=== PATIENT | male | born 1945 | race Two or more races ===

== ENCOUNTER 2021-07-02 12:10 | Emergency (ER) | payer MEDICARE, OTHER ==
[~2021-07-02] VITALS: Ht 170.2 cm; Wt 77.1 kg
--- NOTE | 2021-07-02 12:15 | NUR ---
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 ALSO C/O CHEST DISCOMFORT. PLACED ON BED. AMBULATORY, AAOX4.
--- NOTE | 2021-07-02 12:18 | NUR ---
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 CHANGED TO HOSP GOWN, WARM BLANKET PROVIDED. MD AT BEDSIDE
--- NOTE | 2021-07-02 12:21 | NUR ---
CODE STROKE ACTIVATED
--- NOTE | 2021-07-02 12:23 | NUR ---
WHEELED OUT VIA RNEY FOR CT SCAN
[2021-07-02] MEDS ORDERED: PANT40TA49 PO (12:25)
[2021-07-02] MEDS ORDERED: DUTA0.5C37 PO (12:25)
[2021-07-02] MEDS ORDERED: NIFE20CA PO (12:25)
[2021-07-02] MEDS ORDERED: TAMS-12 PO (12:25)
[2021-07-02] MEDS ORDERED: LOSA100T31 PO (12:25)
--- NOTE | 2021-07-02 12:26 | NUR ---
EKG TAKEN AT CT SCAN ROOM
[2021-07-02] MEDS ORDERED: IV NS 0.9% 250 ML IV ONE ×2 (12:27→12:29)
[2021-07-02] MEDS ORDERED: CT SWABBABLE VALVE TRANS SET 1 EA INFUS.SET MC ONE (12:27)
[2021-07-02] MEDS ORDERED: IOHEXOL-350 100 ML VIAL IV ONE ×2 (12:27→12:29)
[2021-07-02 12:32] LABS: BASOPHILS % (AUTO) 0.5 % (0.0-2.0); EOSINOPHILS % (AUTO) 0.5 % (0.0-6.0); HEMATOCRIT 40 % (39-51); HEMOGLOBIN 13.3 g/dL (13.5-17.5); LYMPHOCYTES # (AUTO) 2.4 K/uL (0.8-4.8); LYMPHOCYTES % (AUTO) 30.6 % (20.0-44.0); MEAN CORPUSCULAR HGB CONC 34 g/dl (31.0-36.0); MEAN CORPUSCULAR VOLUME 88 fL (80-96); MONOCYTES # (AUTO) 0.6 K/uL (0.1-1.30); MONOCYTES % (AUTO) 8.1 % (2.0-12.0); NEUTROPHILS # (AUTO) 4.8 K/uL (1.8-8.9); NEUTROPHILS % (AUTO) 60.3 % (43.0-81.0); PLATELET COUNT (AUTO) 249 K/uL (150-450); RED BLOOD CELL COUNT(AUTO) 4.48 MIL/uL (4.5-6.0)
[2021-07-02 12:38] LABS: CALCIUM, SERUM 9.2 mg/dL (8.5-10.1); CARBON DIOXIDE 25 mmol/L (21-32); CHLORIDE 105 mmol/L (98-107); CREATININE 1.1 mg/dL (0.6-1.3); GLUCOSE 108 mg/dL (74-106); POTASSIUM 3.9 mmol/L (3.5-5.1); SODIUM SERUM 139 mmol/L (136-145); UREA NITROGEN, BLOOD 14 mg/dL (7-18)
--- NOTE | 2021-07-02 12:47 | NUR ---
NURSE OB AT BEDSIDE
--- NOTE | 2021-07-02 13:01 | NUR ---
DR CHESTER, NEUROLOGIST SPEAKING W DR LUX. NO TPA PER NEUROLOGIST. MADE PHARMACY AWARE
--- NOTE | 2021-07-02 13:49 | NUR ---
SPOKE WITH BENSON MOSES FROM [facility]. CLINICALS FAXED REQUESTED WITH CONFIRMATION NOTED.
--- NOTE | 2021-07-02 13:50 | NUR ---
SPOKE WITH AURELIA (TEL: [phone] / FAX: [phone]) FROM [facility]. ACCEPTED TO [facility], UNDER THE CARE OF DR. CORONA (MEDICAL) AND DR. CAPUTO (NEUROSURGERY). AURELIA WILL CALL US BACK RE: TRANSFER INFORMATION. PRIMARY RN AWARE.
--- NOTE | 2021-07-02 14:03 | NUR ---
COVID SWAB COLLECTED AND SENT TO THE LAB.
--- NOTE | 2021-07-02 14:03 | NUR ---
RAPID COVID SWAB DONE AND SENT TO LAB
--- NOTE | 2021-07-02 15:00 | NUR ---
CALLED AND SPOKE WITH BENSON MOSES FROM [facility]. PER AURELIA NO UPDATE RE: BED AVAILABILITY.
--- NOTE | 2021-07-02 16:00 | NUR ---
CALLED AND SPOKE WITH BENSON ZHU FROM [facility]. PER AUDRA NO UPDATE RE: BED AVAILABILITY AT THIS TIME. WILL CALL US BACK LATER FOR UPDATE. CLINICALS FAXED AGAIN REQUESTED WITH CONFIRMATION NOTED. PRIMARY RN AWARE.
--- NOTE | 2021-07-02 16:44 | NUR ---
CALLED AND SPOKE WITH [facility]. PATIENT IS GOING TO ROOM [id number] AND TEL: FOR REPORT IS [phone]. PER CHRIST WILL CALL US BACK RE: TRANSPORTATION INFORMATION. PRIMARY RN AWARE.
--- NOTE | 2021-07-02 17:00 | NUR ---
REPORT GIVEN TO DEONDRE KNOWLES OF [facility]. CALL BACK FOR AMBULANCE ETA AT [phone]. INSTRUCTIONS FOR AMBULANCE AT [facility] 4TH FLOOR.
--- NOTE | 2021-07-02 17:03 | NUR ---
[facility] BY [facility] AMBULANCE AT 2100
--- NOTE | 2021-07-02 17:06 | NUR ---
SPOKE WITH CHRIST FROM [facility] WITH TRANSPORTATION INFORMATION [facility] ETA AT [phone] (TEL: [phone]). PRIMARY RN AWARE.
--- NOTE | 2021-07-02 17:25 | NUR ---
MADE MD AWARE OF BP. VERBALLY ORDERED HYDRALAZINE 10MG IVP. CARRIED OUT. PATIENT STATES HE TOOK [place] 100MG PO THIS MORNING AT 0900.
[2021-07-02] MEDS ORDERED: hydrALAZINE HCL IV 20 MG VIAL ONE (17:27)
[2021-07-02] MEDS ORDERED: hydrALAZINE HCL IV 20 MG VIAL IV ONE (18:00)
--- NOTE | 2021-07-02 19:19 | NUR ---
REPORT GIVEN TO JACKY KNOWLES FOR [facility]
--- NOTE | 2021-07-02 20:15 | NUR ---
PT RESTING COMFORTABLY IN BED, PT DENIES ANY PAIN AT THIS TIME. WILL CONTINUE TO MONITOR
--- NOTE | 2021-07-02 21:27 | NUR ---
AMBULANCE ETA @ 1030-11PM
[2021-07-02 21:58] VITALS: BP 167/67
--- NOTE | 2021-07-02 23:36 | NUR ---
FOLLOWED UP WITH [facility]. AMBULANCE ENROUTE, ETA 20 MIN.
--- NOTE | 2021-07-03 00:14 | NUR ---
[facility]
== END 2021-07-03 00:14 | disposition short-term general hospital (02) ==
LOC: ER 12:16
DX: G93.89 Other specified disorders of brain (principal); R29.810 Facial weakness; R13.10 Dysphagia, unspecified; R47.1 Dysarthria and anarthria; R25.2 Cramp and spasm; Z20.822 Contact with and (suspected) exposure to COVID-19; I10 Essential (primary) hypertension
CPT/HCPCS: 36415; 70450; 70496; 70498; 71045; 80048; 84484 ×3; 85025; 85730; 87426; 93005; 96374; 99291; 99292; J0360; J7050 ×2; Q9967 ×2; C9803